=== PATIENT | male | born 1960 | race Caucasian/White ===

== ENCOUNTER → 2018-07-02 | Outpatient (CLI) | payer BC ==
[~2018-07-02] MED LIST: ARIMIDEX1 MG PO; CELEXA40 MG PO; CIALIS20 MG PO; COZAAR100 MG PO; FLOMAX0.4 MG PO; HYDROCODON-ACE1 EAC7 PO; HYDROCODONE-AP1 EAC6 PO; HYDROCORTISONE3011 TP; NAPROSYN500 MG PO; NORCO 7.5-3251 EACH PO; OMEPRAZOLE40 MG PO; PHENTERMINE H37.5 MG PO; RELAFEN750 MG PO; TESTOSTERO200 MG/1 M IM
--- NOTE | ~2018-07-02 | PAINCON ---
[address] [address] PAIN MANAGEMENT CONSULTATION Name: DENA PETIT Room: [facility]#: [id number] Admission: 07/02/18 Attend Phys: Jeana Ho MD Discharge: Date of : 62 Report #: [id number] THIS REPORT FOR: //name// CC: Frankie Ho DATE OF SERVICE: 07/02/2018 CHIEF COMPLAINT: Low back pain. HISTORY OF PRESENT ILLNESS: The patient is a 57-year-old gentleman who has been referred to the pain clinic for evaluation of low back and right leg pain. The patient has been experiencing pain radiating down into his right leg. Notes that there is an aching sensation. There is numbness and heaviness associated with it. He did use a Medrol Dosepak. Noted some slight benefit from that. Rates his pain as 5/10 at this juncture. Has been using Aleve. Has been using gabapentin in the past as well as Mobic and tramadol. ALLERGIES: No known drug allergies. CURRENT MEDICATIONS: Celexa 40 mg, Cozaar 100 mg, Naprosyn 500 mg b.i.d., omeprazole 40 mg, Cialis 20 mg, and testosterone injection 200 mcg intramuscular, 100 mg weekly. PAST MEDICAL HISTORY: 1. Cervical radiculopathy involving the right arm. 2. ____/colon. 3. Hypogonadism. 4. Obesity. 5. Erectile dysfunction. 6. Benign prostatic hypertrophy with obstruction. 7. Depression. 8. Anxiety. PAST SURGICAL HISTORY: 1. Hernia repair. 2. Cervical fusion. 3. Tennis elbow, right side. 4. 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 REVIEW OF SYSTEMS: Generally good health, headaches, wears glasses, hearing loss, frequent recurring headaches, numbness and tingling sensation, head injury, memory loss, [place] [address] PAIN MANAGEMENT CONSULTATION Name: DENA PETIT Room: [facility]#: [id number] Admission: 07/02/18 Attend Phys: Jeana Ho MD Discharge: Date of : 62 Report #: [id number] No new laboratory valves are available at the time of our interview. PAIN CLINIC ASSESSMENT/PQRS: 1. The patient has some arthritic changes in the neck area. 2. The patient is not being treated for rheumatoid arthritis. 3. Vital signs: Blood pressure 158/82, heart rate 92, respiratory rate 16, room air saturation 93%. Temperature 98.2. 4. Pain score 5/10. 5. Height 5 feet 9 inches, weight 230 pounds, BMI is 36. 6. Blood thinner. The patient is not on a blood thinning medication. 7. Hypertension. The patient has been treated for hypertension. 8. Opiate greater than 6 weeks. The patient is not receiving opioid on a regular basis. 9. Risk assessment tool, low for opioid use. 10. Functional assessment tool. 11. Recreational drug use. The patient denies use of recreational drugs. 12. Tobacco: The patient denies use of tobacco. PHYSICAL EXAMINATION: GENERAL: The patient is a well-developed, well-nourished white male. Appears his stated age. He is alert and oriented x 3. His affect is appropriate. Speech is fluent: HEENT: Normocephalic, atraumatic. Extraocular eye muscles intact. Sclerae nonicteric. Mucous membranes are moist. NECK: Without adenopathy or JVD. HEART: Regular rate. LUNGS: Clear to auscultation. MUSCULOSKELETAL: Without significant kyphosis, scoliosis, or lordosis. The patient is not complaining of cervical radicular pain. His pain and discomfort in the L4-L5 dermatomal distribution and down into the anterior portion of his leg. IMPRESSION: 1. Lumbar radiculopathy, L4-L5 dermatomal distribution with nerve root irritation. 2. Hypertension. 3. Cervical radiculopathy involving the right arm. 4. ____/colon. 5. Hypogonadism. 6. Obesity. 7. Erectile dysfunction. 8. Benign prostatic hypertrophy with obstruction. 9. Depression. 10. [place] [address] PAIN MANAGEMENT CONSULTATION Name: DENA PETIT [id number] Admission: 07/02/18 Attend Phys: Jeana Ho MD Discharge: Date of : 62 Report #: [id number] RECOMMENDATIONS: We discussed treatment options with the patient. Risks and benefits of an epidural steroid injection were discussed. They could include but are not limited to infection, worsening of pain, no improvement in pain, bleeding, and nerve damage. The patient will return at which time he would then consider an epidural steroid injection. We would like to thank you for letting us participate in his care. We hope he continues to improve. By: [id number]. Durga Ho MD /[facility]
== END ==
LOC: M.PC 13:07
DX: M54.16 Radiculopathy, lumbar region (principal); M54.12 Radiculopathy, cervical region; I10 Essential (primary) hypertension; E66.9 Obesity, unspecified; F32.9 Major depressive disorder, single episode, unspecified; F41.9 Anxiety disorder, unspecified; E29.1 Testicular hypofunction; N40.1 Benign prostatic hyperplasia with lower urinary tract symptoms; N13.8 Other obstructive and reflux uropathy; N52.9 Male erectile dysfunction, unspecified; Z68.36 Body mass index [BMI] 36.0-36.9, adult; Z79.899 Other long term (current) drug therapy

== ENCOUNTER → 2018-07-07 | Outpatient (CLI) | payer BC ==
--- NOTE | ~2018-07-07 | PAINCON ---
[address] [address] PAIN MANAGEMENT CONSULTATION Name: DENA PETIT [facility] [id number] Admission: 07/07/18 Attend Phys: Jeana Ho MD Discharge: Date of : 62 Report #: [id number] THIS REPORT FOR: //name// CC: Frankie Ho DATE OF SERVICE: 07/07/2018 CHIEF COMPLAINT: Pain that is radiating down to the low back and into the right leg. He is here for an epidural steroid injection. FOLLOWUP HISTORY: The patient is a 57-year-old gentleman who has been referred to the Pain Clinic because of pain and discomfort involving his low back. He is experiencing pain and discomfort in the low back area involving his right leg. He has tried a Medrol Dosepak. Overall, his pain continued to be problematic. LABORATORY DATA: MRI shows that he has a bulging disk at L4-L5 and the right neural foramen causing mass effect, which is likely an extrusion of a disk fragment, which measures 1.2 cm and feels majority of the right foramen effacing the L4 nerve root with compression. No pressure on the nerve. The patient has returned for an epidural steroid injection. We discussed the possible complication of the procedure and the patient would like to proceed. ALLERGIES: No known drug allergies. CURRENT MEDICATIONS: Celexa 40 mg, Cozaar 100 mg, Naprosyn 500 mg b.i.d., omeprazole 40 mg, Cialis 20 mg, testosterone injection 200 mcg intramuscularly, 100 mg weekly. PAIN CLINIC ASSESSMENT/PQRS: 1. History of osteoarthritis. The patient has some low back pain, but has not been treated for osteoarthritis. The patient is not being treated for rheumatoid arthritis. 2. Height 5 feet 9 inches, weight 242 pounds, BMI is 36. 3. Vital signs: Blood pressure 148/89, heart rate 85, respiratory rate 16, room air saturation 94%, temperature is 97.8. 4. Pain score 5/10. 5. The patient has not fallen in the last 3 months. 6. Blood thinner. The patient is not on a blood thinning medication. 7. Hypertension. He has been treated for hypertension. 8. Opioids greater than 6 weeks. The patient is not receiving opioid medications. 9. Risk assessment tool, low for opioid use. 10. Functional assessment tool. 11. Recreational drug use. The patient denies use of recreational drugs. 12. Tobacco: The [place] [address] PAIN MANAGEMENT CONSULTATION Name: DENA PETIT Room: [facility]#: [id number] Admission: 07/07/18 Attend Phys: Jeana Ho MD Discharge: Date of : 62 Report #: [id number] 13. Alcohol: The patient denies frequent use of alcoholic beverages. PHYSICAL EXAMINATION: GENERAL: The patient is a well-developed, well-nourished white male. Appears his stated age. He is alert and oriented x 3. His affect is appropriate. Speech is fluent. HEENT: Normocephalic, atraumatic. Extraocular eye muscles intact. Sclerae nonicteric. Mucous membranes are moist. NECK: Without adenopathy or JVD. HEART: Regular rate. LUNGS: Clear to auscultation. MUSCULOSKELETAL: Without significant scoliosis, kyphosis or lordosis. The patient has some burning pain in the L4 dermatomal distribution and anterior portion of his leg. IMPRESSION: 1. Lumbar radiculopathy, L4-L5 dermatomal distribution with nerve root irritation. 2. Hypertension. 3. Gastrointestinal irritation. RECOMMENDATIONS: We discussed treatment options with the patient. Risks and benefits of an epidural steroid injection were discussed. Possible complications were reviewed. They include but are not limited to infection, worsening pain, no improvement in pain, bleeding, nerve damage, paralysis. The patient elects to proceed. PROCEDURE NOTE: The patient was taken to the procedure area. He was assisted in getting on the examination table. A pillow was placed under his abdomen to bolster and improve positioning. Fluoroscopy using anterior, posterior as well as lateral and viewing were implemented. The patient's back was sterilely prepped with a chlorhexidine solution. A 0.25% bupivacaine was infiltrated at the L4-L5 interspace. This area had been sterilely prepped. A 17-gauge Tuohy with loss of resistance technique with a needle in the right paracentral approach was undertaken. After appropriate placement, aspiration was negative. A total of 80 mg Depo-Medrol, 40 mg triamcinolone and 2 mL of 0.25% bupivacaine was injected. The patient tolerated the procedure well. There were no complications. He remained in the Pain Clinic for an appropriate amount of time. The patient has been given a script for hydrocodone 5/325 one p.o. t.i.d. or b.i.d. as needed. He will call us if he has any concerns. Total of 9 seconds [place] [address] PAIN MANAGEMENT CONSULTATION Name: DENA PETIT Room: [facility]#: [id number] Admission: 07/07/18 Attend Phys: Jeana Ho MD Discharge: Date of : 62 Report #: [id number] We would like to thank you for letting us participate in his care. We hope he continues to improve. By: [id number] Ho MD /nt
== END | disposition home or self-care (01) ==
LOC: M.PC 04:44
DX: M54.16 Radiculopathy, lumbar region (principal); G89.29 Other chronic pain; I10 Essential (primary) hypertension; K92.9 Disease of digestive system, unspecified; Z79.899 Other long term (current) drug therapy; Z79.891 Long term (current) use of opiate analgesic

== ENCOUNTER → 2018-08-11 | Outpatient (CLI) | payer BC ==
--- NOTE | ~2018-08-11 | PAINCON ---
[address] [address] PAIN MANAGEMENT CONSULTATION Name: DENA PETIT [id number] Admission: 08/11/18 Attend Phys: Jeana Ho MD Discharge: Date of : 62 Report #: [id number] THIS REPORT FOR: //name// CC: Frankie Ho DATE OF SERVICE: 08/11/2018 FOLLOWUP HISTORY: The patient is a 57-year-old gentleman who has been seen in the Pain Clinic in the past because of lumbar radicular pain as well as discomfort that is radiating down into his right leg. Continues to note a burning sensation in this area. Notes that the pain is worse if he stands for a prolonged period of time. Walking, sitting and standing can be problematic as well. Note some improvement when he rests. No real change in his bowel or bladder function. Rates his pain as a 3-4/10. Feels that the hydrocodone medication has been beneficial as well. At this point, he has returned to the Pain Clinic with a desire to undergo an epidural steroid injection. He has tried Medrol Dosepak in the past. ALLERGIES: No known drug allergies. MEDICATIONS: Celexa 40 mg, Cozaar 100 mg, Naprosyn 500 mg b.i.d., omeprazole 40 mg, Cialis, 20 mg, testosterone injection 200 mcg intramuscularly 100 mg weekly. PAIN CLINIC ASSESSMENT/PQRS: 1. History of osteoarthritis. The patient has some low back pain and is being treated for osteoarthritis. He has not been treated for rheumatoid arthritis. 2. Height 5 feet 9 inches, weight 242 pounds, BMI is 35.8. 3. Vital signs: Blood pressure 143/90, heart rate 95, respiratory rate 16, room air saturation 95%, temperature 97.7. 4. Pain intensity 3-4/10. 5. Fall history. The patient has not fallen in the last 3 months. 6. Blood thinner. The patient is not on a blood thinning medication. 7. Hypertension. The patient is treated for hypertension. 8. Opioids greater than 6 weeks. The patient is not receiving opioid medications on a regular basis. 9. Risk assessment tool, low for opioid use. 10. Functional assessment tool. 11. Recreational drug use. The patient denies use of recreational drugs. 12. Tobacco: The patient denies use of tobacco. 13. Alcohol: The patient denies frequent use of alcoholic beverages. PHYSICAL EXAMINATION: GENERAL: The patient is a well-developed, well-nourished white male. Appears his stated age. He is alert and oriented x 3. His affect is appropriate[place] [address] PAIN MANAGEMENT CONSULTATION Name: DENA PETIT [facility]: [facility]#: [id number] Admission: 08/11/18 Attend Phys: Jeana Ho MD Discharge: Date of : 62 Report #: [id number] HEENT: Normocephalic, atraumatic. Extraocular eye muscles intact. Sclerae nonicteric. Mucous membranes are moist. NECK: Without adenopathy or JVD. HEART: Regular rate. LUNGS: Clear to auscultation. MUSCULOSKELETAL: Without significant scoliosis, kyphosis or lordosis. The patient has some pain and discomfort in the lower portion of his back in the L4-L5 dermatomal distribution with pain radiating to the anterior portion of his leg. IMPRESSION: 1. Lumbar radiculopathy, L4-L5 dermatomal distribution with pain radiating to the anterior portion of his leg in the L4 distribution. 2. Hypertension. 3. Gastroesophageal irritation. RECOMMENDATIONS: We discussed treatment options with the patient. Risks and benefits of an epidural steroid injection were discussed. They include but are not limited to infection, worsening of pain, no improvement in pain, nerve damage, spinal headache. The patient elected to proceed with an epidural steroid injection. Risks and benefits had been discussed and the patient was then taken to the procedure area. He was assisted in getting on the examination table. His back was sterilely prepped with a Betadine solution. Anterior, posterior viewing use the fluoroscopic was undertaken. The patient's back was sterilely prepped. At the L2-L3 interspace .25% bupivacaine was infiltrated. A 17-gauge Tuohy with loss of resistance technique was used to gain access to the epidural space. There was no CSF, heme or paresthesia. Total of 80 mg Depo-Medrol, 40 mg triamcinolone and 2 mL of 0.25% bupivacaine was injected. The patient tolerated the procedure well. There were no complications. Remained in Pain Clinic for an appropriate amount of time. A script for Naprosyn 500 mg 1 p.o. b.i.d. and hydrocodone 5 mg 1 p.o. b.i.d. have been released. The patient's pain was in the L2-L3 dermatomal distribution is reasonably proceeded and placed the injection at this level. He will follow up in the future if needed. We would like to thank you for letting us participate in his care. We hope he continues to improve. By: [id number]. Durga Ho MD /brea
== END | disposition home or self-care (01) ==
LOC: M.PC 04:57
DX: M54.16 Radiculopathy, lumbar region (principal); G89.29 Other chronic pain; I10 Essential (primary) hypertension; Z87.19 Personal history of other diseases of the digestive system; Z79.899 Other long term (current) drug therapy; Z98.890 Other specified postprocedural states; Z79.891 Long term (current) use of opiate analgesic

== ENCOUNTER → 2018-09-15 | Outpatient (CLI) | payer BC ==
--- NOTE | ~2018-09-15 | PAINCON ---
[address] [address] PAIN MANAGEMENT CONSULTATION Name: DENA PETIT [facility] [id number] Admission: 09/15/18 Attend Phys: Jeana Ho MD Discharge: Date of : 62 Report #: [id number] THIS REPORT FOR: //name// CC: Frankie Ho DATE OF SERVICE: 09/15/2018 CHIEF COMPLAINT: Pain in the low back and down into the right leg with numbness in the right thigh. HISTORY: The patient is a 57-year-old gentleman who has been seen in the Pain Clinic because of lumbar radiculopathy. He has undergone epidural steroid injections. There has been benefit from the injections. He returns today, indicating that his pain has risen to the level of 5. He feels that another epidural steroid injection could be beneficial given that he continues to have pain, which is problematic. He notes that the pain is worse when he is standing. He denies any bowel or bladder dysfunction. He has returned today for the third in the series of epidural steroid injections. ALLERGIES: No known drug allergies. CURRENT MEDICATIONS: Celexa 40 mg, Cozaar 100 mg, Naprosyn 500 mg b.i.d., omeprazole 40 mg, Cialis 20 mg, testosterone injection 200 mcg, intramuscular injections weekly 100 mg. PAIN CLINIC ASSESSMENT/PQRS: 1. History of osteoarthritis: The patient has some low back pain that is consistent with osteoarthritis. He is not being treated for rheumatoid arthritis. 2. Height 5 feet 9 inches, weight 240 pounds, BMI 35.5. 3. Vital signs: Blood pressure 139/91, heart rate 89, respiratory rate 16, room air saturation 94%, temperature 97.5. 4. Pain intensity: 5/10. 5. Fall history: The patient has not fallen in the last 3 months. 6. Blood thinner: The patient is not on a blood thinning medication. 7. Hypertension: The patient is being treated for hypertension. 8. Opioids greater than 6 weeks: The patient is not receiving opioid medication on a regular basis. 9. Risk assessment tool: Low for opioid use. 10. Functional assessment tool. 11. Recreational drug use: The patient denies use of recreational drugs. 12. Tobacco: The patient denies use of tobacco. 13. Alcohol: The patient denies use of alcoholic beverages. PHYSICAL EXAMINATION: [place] [address] PAIN MANAGEMENT CONSULTATION Name: DENA PETIT Room: [facility]#: [id number] Admission: 09/15/18 Attend Phys: Jeana Ho MD Discharge: Date of : 62 Report #: [id number] GENERAL: The patient is a well-developed, well-nourished white male. He appears his stated age. He is alert and oriented x 3. His affect is appropriate. Speech is fluent. HEENT: Normocephalic, atraumatic. Extraocular eye muscles intact. Sclerae nonicteric. Mucous membranes are moist. NECK: Without adenopathy or JVD. HEART: Regular rate. LUNGS: Clear to auscultation. MUSCULOSKELETAL: Without significant scoliosis, kyphosis, or lordosis. Upper extremity muscle strength judged to be 5/5 for the major muscle groups. The patient is having pain and discomfort in the L4-L5 dermatomal distribution, involving the low back, predominantly on the right side. IMPRESSION: 1. Lumbar radiculopathy on the right L4-L5 with pain into the anterior portion of the leg. 2. Hypertension. 3. Gastroesophageal irritation. RECOMMENDATIONS: We discussed treatment options with the patient. Risks and benefits of an epidural steroid injection were again discussed. The possible complications of the procedure were reviewed. At this juncture, the patient would like to proceed with another epidural steroid injection with hopes that his pain would continue to improve. PROCEDURE NOTE: The patient was taken to the procedure area. He was assisted in getting on the examination table. His back was sterilely prepped with a Betadine solution in the L4-L5 area. Fluoroscopy using anterior, posterior as well as lateral viewing were implemented. A 0.25% bupivacaine was infiltrated at the L4-L5 interspace. A 17-gauge Tuohy with loss of resistance technique was used to gain access to the epidural space. There was no CSF, heme or paresthesia. A total of 80 mg Depo-Medrol, 40 mg triamcinolone and 2 mL of 0.25% bupivacaine was injected. The patient's pain was 5/10 at the time of discharge. He will follow up in the future as needed. We would like to thank you for letting us participate in his care. We hope he continues to improve. By: [id number]. Durga Ho MD /brea
== END | disposition home or self-care (01) ==
LOC: M.PC 05:17
DX: M54.16 Radiculopathy, lumbar region (principal); G89.29 Other chronic pain; I10 Essential (primary) hypertension; K21.9 Gastro-esophageal reflux disease without esophagitis; Z79.899 Other long term (current) drug therapy; Z98.890 Other specified postprocedural states

== ENCOUNTER → 2019-01-28 | Outpatient (CLI) | payer BC ==
[~2019-01-28] MED LIST changes: +AMITRIPTYLINE H10 M3 PO
--- NOTE | ~2019-01-28 | PAINCON ---
[address] [address] PAIN MANAGEMENT CONSULTATION Name: DENA PETIT [facility] [id number] Admission: 01/28/19 Attend Phys: Jeana Ho MD Discharge: Date of : 62 Report #: [id number] THIS REPORT FOR: //name// CC: Frankie Ho DATE OF SERVICE: 01/28/2019 CHIEF COMPLAINT: Right leg pain. HISTORY: The patient is a 58-year-old gentleman who has returned to the pain clinic with complaint of pain involving his right leg. He has undergone epidural steroid injection and found that that was quite helpful. He has returned today because of return of pain and discomfort involving the right leg. He has some pain and discomfort in the anterior portion of the leg. He has had some pain that radiating down into the L5 distribution of his leg. He feels that pain has improved and did improve after the injection. He is having pain, which he describes as burning, tearing sensation. Injections in the past were helpful and the patient has returned today for another injection. Notes that his pain is to the level that walking can be painful. Denies any bowel or bladder dysfunction. He does work on a number of items at work. He says that his workload is quite diverse. Certain movements and contortions can exacerbate his pain and discomfort. ALLERGIES: No known drug allergies. CURRENT MEDICATIONS: Celexa 40 mg, Cozaar 100 mg, Naprosyn 500 mg b.i.d., omeprazole 40 mg, Cialis 20 mg, testosterone injection 200 mcg, intramuscular injections weekly 100 mcg, PAIN CLINIC ASSESSMENT AND PQRS: 1. The patient has some low back pain consistent with osteoarthritis. He is not being treated for rheumatoid arthritis. 2. Height 5 feet 8 inches, weight 244 pounds, BMI is 37. 3. Vital signs: Blood pressure 135/97, heart rate 86, respiratory rate 16, room air saturation 96%, temperature 98.2. 4. Pain intensity 10/09. 5. Fall history: The patient has not fallen in the last 3 months. 6. Blood thinner. The patient is not on a blood thinning medication. 7. Hypertension. The patient is being treated for hypertension. 8. Opioids greater than 6 weeks. The patient is not receiving opioids on a regular basis. He has used hydrocodone and found it beneficial. 9. Risk assessment tool, low for opioid use. 10. Functional assessment tool. 11. Recreational drug use. The patient denies use of recreational drugs. 12. Tobacco: The patient [place] [address] PAIN MANAGEMENT CONSULTATION Name: DENA PETIT Room: [facility]#: [id number] Admission: 01/28/19 Attend Phys: Jeana Ho MD Discharge: Date of : 62 Report #: [id number] 13. Alcohol. The patient denies frequent use of alcoholic beverages. PHYSICAL EXAMINATION: GENERAL: The patient is a well-developed, well-nourished white male. Appears his stated age. He is alert and oriented x 3. His affect is appropriate. Speech is fluent. HEENT: Normocephalic, atraumatic. Extraocular eye muscles intact. Sclerae nonicteric. Mucous membranes are moist. NECK: Without adenopathy or JVD. HEART: Regular rate. ABDOMEN: Nontender. Bowel sounds present. LUNGS: Clear to auscultation. MUSCULOSKELETAL: Without significant scoliosis, kyphosis or lordosis. Upper extremity muscle strength judged to be 5/5 for the major muscle groups in the upper extremity. The patient has some pain and discomfort in the L5-S1 dermatomal distribution involving the right side. He has some pain along the anterior portion of his thigh on the right side. IMPRESSION: 1. Lumbar radiculopathy at the L4-L5 area with discomfort and sensory changes in lower extremity. 2. Hypertension. 3. Gastroesophageal irritation. RECOMMENDATIONS: We discussed treatment options with the patient. Risks and benefits of an epidural steroid injection were discussed. Possible complications of the procedure were reviewed. We discussed the possibility of infection, bleeding, nerve damage, paralysis and the patient elects to proceed. PROCEDURE NOTE: The patient was taken to the procedure area. He was assisted in getting on the examination table. He was placed with a pillow under his abdomen to bolster and improve positioning. Fluoroscopy using anterior, posterior as well as lateral viewing were implemented. The patient's back was sterilely prepped with a Betadine solution. A 0.25% bupivacaine was infiltrated in the midline area at L4-L5. A 17-gauge Tuohy with [id number]-[id number] technique was used to gain access to the epidural space. A 17-gauge Tuohy using a right paramedian approach was undertaken. Aspiration was negative. A total of 80 mg of Depo-Medrol, 40 mg of triamcinolone and 2 mL of 0.25% bupivacaine were injected. The patient tolerated the procedure well. There were no complications. He remained in the pain clinic for an appropriate amount of time. He will call us if he has any concerns. The patient does complain of a burning component to the pain and discomfort. Elavil has been helpful with pain conditions where burning is problem. The patient will try Elavil 10 mg at bedtime for about 3-4 days. If he finds his pain continues to be problematic with burning and discomfort, he will then try 2 tablets for a total of 20 mg more of Elavil at bedtime. We can increase this over [place] [address] PAIN MANAGEMENT CONSULTATION Name: DENA PETIT Velia Room: [facility]#: [id number] Admission: 01/28/19 Attend Phys: Jeana Ho MD Discharge: Date of : 62 Report #: [id number] patient will call us if he has any problems. We would like to thank you for letting us participate in his care. We hope he continues to improve. By: [id number]. Durga Ho MD /[facility]
== END | disposition home or self-care (01) ==
LOC: M.PC 05:21
DX: M54.16 Radiculopathy, lumbar region (principal); G89.29 Other chronic pain; I10 Essential (primary) hypertension; K21.9 Gastro-esophageal reflux disease without esophagitis; Z79.891 Long term (current) use of opiate analgesic; Z79.899 Other long term (current) drug therapy; Z98.890 Other specified postprocedural states

== ENCOUNTER → 2019-03-02 | Outpatient (CLI) | payer BC ==
[~2019-03-02] MED LIST changes: +AMITRIPTYLINE H25 M2 PO; +DOXEPIN 10 MG C10 M1 PO
--- NOTE | 2019-03-24 09:09 | PAINCON ---
[address] [address] PAIN MANAGEMENT CONSULTATION Name: DENA PETIT Room: [facility] Veda#: [id number] Admission: 03/02/19 Attend Phys: Jeana Ho MD Discharge: Date of : 62 Report #: [id number] THIS REPORT FOR: //name// CC: Frankie Ho DATE OF SERVICE: 03/02/2019 CHIEF COMPLAINT: The epidural injections were helpful, but I still have pain, which continues to recur. HISTORY: The patient is a 58-year-old gentleman who has been followed in the pain clinic because of chronic back pain. Notes that there is pain in his right leg. He has noticed a worsening of his pain over the last few days. He has had epidural steroid injections. He gleaned benefits from these. He did have an MRI, which showed pain in the L4-L5 dermatomal distribution of his back. His MRI on 06/17/2018, showed a disk extrusion 1.2 cm that filled the majority of his right foramen, exiting the L4 nerve root. The patient has received about 50% improvement after the last epidural steroid injection. He continues to use Naprosyn 500 mg. Finds that the [place] is helpful as well. He was provided amitriptyline 10 mg, total of 2 tablets at night for a total of 20 mg at night. He has not noticed a significant improvement in his pain or sleep as a result of that medication. There has been no problems with clouding of his sensorium with his medications or treatment. Feels that sometimes it almost feels that though he is dragging his left leg. He has had surgery in his neck and overall after that surgery has noted improvement in the cervical area. ALLERGIES: No known drug allergies. CURRENT MEDICATIONS: Celexa 40 mg, Cozaar 100 mg, Naprosyn 500 mg b.i.d., omeprazole 40 mg, Cialis 20 mg, testosterone injection 200 mcg intramuscularly weekly. PAIN CLINIC ASSESSMENT AND PQRS: 1. The patient has some low back pain consistent with osteoarthritis. He is not being treated for rheumatoid arthritis. 2. Height 5 feet 8 inches, weight 241 pounds, BMI is 39.0. 3. Vital Signs: Blood pressure 151/93, heart rate is 98, respiratory rate 16, room air saturation 96%, temperature 98.9. 4. Pain score 3/10. 5. Fall history: The patient has not fallen in the last 3 months. 6. Blood thinner. The patient is not on a blood thinning medication. 7. Hypertension. The patient is being treated for hypertension. 8. Opioids greater than 6 weeks. The [facility]. 9. Risk assessment tool, [place] [address] PAIN MANAGEMENT CONSULTATION Name: DENA PETIT Room: [facility]#: [id number] Admission: 03/02/19 Attend Phys: Jeana Ho MD Discharge: Date of : 62 Report #: [id number] 10. Functional assessment tool. 11. Recreational drug use. The patient denies use of recreational drugs. 12. Tobacco: The patient denies use of tobacco. 13. Alcohol. The patient denies frequent use of alcoholic beverages. PHYSICAL EXAMINATION: GENERAL: The patient is a well-developed, well-nourished white male. Appears his stated age. He is alert and oriented x 3. His affect is appropriate. Speech is fluent. HEENT: Normocephalic, atraumatic. Extraocular eye muscles intact. Sclerae nonicteric. Mucous membranes are moist. NECK: Without adenopathy or JVD. ABDOMEN: Nontender. LUNGS: Clear to auscultation. MUSCULOSKELETAL: Without significant scoliosis, kyphosis or lordosis. Upper extremity muscle strength judged to be 5/5 for the major muscle groups in the upper extremity. The patient has some pain and discomfort in the L5-S1 dermatomal distribution and has more pain in the L4-L5 dermatomal distribution. RECOMMENDATIONS: We discussed treatment options with the patient. Risks and benefits of an epidural steroid injection were discussed. They could include but are not limited to infection, worsening pain, no improvement in pain and the patient elects to undergo an injection at the L4-L5 area. IMPRESSION: 1. Lumbar radiculopathy, L4-L5 dermatomal distribution with sensory changes and weakness. 2. Hypertension. 3. Gastroesophageal irritation. PROCEDURE NOTE: We discussed the procedure with the patient. He was taken to the procedure area. He was then assisted in getting on the examination table. His back was sterilely prepped with a Betadine solution. Fluoroscopy using anterior, posterior as well as lateral viewing were implemented. At the L4-L5 interspace on the right a 0.25% bupivacaine was infiltrated. A total of 80 mg Depo-Medrol, 40 mg triamcinolone and 2 mL of 0.25% bupivacaine was injected. The patient tolerated the procedure well. There were no complications. He remained in the pain clinic for an appropriate amount of time. He will follow up in the future as needed. A total of about 5-10 seconds [place] [address] PAIN MANAGEMENT CONSULTATION Name: DENA PETIT Room: [facility]#: [id number] Admission: 03/02/19 Attend Phys: Jeana Ho MD Discharge: Date of : 62 Report #: [id number] We would like to thank you for letting us participate in his care. We hope he continues to improve. <ELECTRONICALLY SIGNED> By: Jeana Ho MD 03/24/19 0909 [id number]. Durga Ho MD /PMT
== END | disposition home or self-care (01) ==
LOC: M.PC 04:46
DX: M54.16 Radiculopathy, lumbar region (principal); G89.29 Other chronic pain; I10 Essential (primary) hypertension; K21.9 Gastro-esophageal reflux disease without esophagitis; Z98.890 Other specified postprocedural states; Z79.899 Other long term (current) drug therapy

== ENCOUNTER → 2019-04-06 | Outpatient (CLI) | payer BC ==
--- NOTE | 2019-04-12 13:25 | PAINCON ---
[address] [address] PAIN MANAGEMENT CONSULTATION Name: DENA PETIT [id number] Admission: 04/06/19 Attend Phys: Jeana Ho MD Discharge: Date of : 62 Report #: [id number] THIS REPORT FOR: //name// CC: Frankie Ho DATE OF SERVICE: 04/06/2019 CHIEF COMPLAINT: Here for another injection. HISTORY: The patient is a 58-year-old male who has been followed in the pain clinic. As you recall, he does have continued pain in his low back. Has pain that radiates down into the anterior portion of his thigh and down into the anterior portion of his calf. Epidural steroid injections have been helpful. He wishes that the pain would be less problematic, but it continues to be concerning. Does note that there is some numbness in the anterior portion of his leg. At the end of the day, he feels more pain and discomfort. Overall, there have been no complications from his injections. He has returned today with the thought of undergoing another injection. He did try the amitriptyline medication. He found that it made his mouth significantly dry. He has stopped taking that medication. He has had surgery in his neck. ALLERGIES: No known drug allergies. CURRENT MEDICATIONS: Celebrex 40 mg, Cozaar 100 mg, Naprosyn 500 mg b.i.d., omeprazole 40 mg, Cialis 20 mg, testosterone injection 200 mcg intramuscularly. PAIN CLINIC ASSESSMENT/PQRS: 1. The patient has some osteoarthritis in his back. He is not being treated for rheumatoid arthritis. 2. Height 5 feet 8 inches, weight 245 pounds, BMI is 37. 3. Vital signs: Blood pressure 154/97, heart rate 92, respiratory rate 16, room air saturation is 94%, temperature 98.2. 4. Pain intensity 10. 5. Fall history: The patient has not fallen in the last 3 months. 6. Blood thinner. The patient is not on a blood thinning medication. 7. Hypertension. The patient is being treated for hypertension. He normally takes his hypertensive medication at night. 8. Opioids greater than 6 weeks. The patient receives medication from [facility] the pain clinic. 9. Risk assessment tool, low for opioid use. 10. Functional assessment tool. 11. Recreational drug use: The patient denies. 12. Tobacco: The patient denies use of tobacco. He is not vaping. 13. Alcohol. The patient denies frequent use [place] [address] PAIN MANAGEMENT CONSULTATION Name: DENA PETIT Room: [facility]#: [id number] Admission: 04/06/19 Attend Phys: Jeana Ho MD Discharge: Date of : 62 Report #: [id number] PHYSICAL EXAMINATION: GENERAL: The patient is a well-developed, well-nourished white male. Appears his stated age. He is alert and oriented x 3. His affect is appropriate. Speech is fluent. HEENT: Normocephalic, atraumatic. Extraocular eye muscles intact. Sclerae nonicteric. Mucous membranes are moist. The patient is wearing glasses. NECK: Without adenopathy or JVD. EXTREMITIES: Upper extremity muscle strength judged to be 5/5 for the major muscle groups in the upper extremity. LUNGS: Clear to auscultation. HEART: Regular rate. MUSCULOSKELETAL: The patient without significant scoliosis, kyphosis, or lordosis. The patient has pain in lower portion of his back that radiates down to the anterior portion of his thigh and into the anterior calf area. It encompasses the L4-L5 dermatomal distribution. RECOMMENDATIONS: We discussed treatment options with the patient. Risks and benefits of an epidural injection were again reviewed. They include but are not limited to infection, worsening pain, no improvement in pain, nerve damage, spinal headache, increased muscle soreness. The patient elects to proceed. PROCEDURE NOTE: The patient was taken to the procedure area. His back was sterilely prepped with Betadine solution. A 0.25% bupivacaine was infiltrated in the L4-L5 midline area. Fluoroscopy using anterior, posterior as well as lateral viewing was implemented. A total of 80 mg Depo-Medrol, 40 mg triamcinolone and 2 mL of 0.25% bupivacaine were injected. A total of 8 seconds fluoroscopy time was used. The patient's pain was 3 at the time of discharge. The patient did have some elevated blood pressure readings. They were with diastolics at about 100 and systolics of 150s. The patient will take his medication. He will follow up with his primary physician. The patient will go to the Emergency Room should he complain of any symptoms associated with hypertension. IMPRESSION: 1. Lumbar radiculopathy, L4-L5 dermatomal distribution with sensory changes and weakness. 2. Hypertension. 3. Gastroesophageal irritation. <ELECTRONICALLY SIGNED> By: Jeana Ho MD 04/12/19 1325 [id number] [id number]. Durga Ho MD /nt
== END | disposition home or self-care (01) ==
LOC: M.PC 05:05
DX: M54.16 Radiculopathy, lumbar region (principal); G89.29 Other chronic pain; I10 Essential (primary) hypertension; K21.9 Gastro-esophageal reflux disease without esophagitis; Z79.899 Other long term (current) drug therapy; Z98.890 Other specified postprocedural states; Z79.891 Long term (current) use of opiate analgesic